=== PATIENT | male | born 1980 | race Caucasian/White ===

== ENCOUNTER 2021-08-09 00:06 | Emergency (ER) | payer OTHER ==
[2021-08-09] MEDS ORDERED: Take Home: Doxycycline 100 MG Tab, 4 Tab Pack PO ONE (00:20)
[2021-08-09 00:22] VITALS: BP 120/80; PULSE 83
== END 2021-08-09 00:35 | disposition home or self-care (01) ==
LOC: CC.ED 00:06
DX: S50.862A Insect bite (nonvenomous) of left forearm, initial encounter (principal); A93.8 Other specified arthropod-borne viral fevers; W57.XXXA Bitten or stung by nonvenomous insect and other nonvenomous arthropods, initial encounter
CPT/HCPCS: 99282; 99283; A9270-GY